=== PATIENT | male | born 1970 ===

== ENCOUNTER 2020-05-19 13:32 | Emergency (ER) | payer BC, OTHER, SELFPAY ==
[~2020-05-19] VITALS: Ht 177.8 cm; Wt 90.7 kg
--- NOTE | 2020-05-19 14:19 | NUR ---
COVID SWAB DONE
[2020-05-19 14:26] VITALS: BP 97/39
--- NOTE | 2020-05-19 14:53 | NUR ---
FEVER, COUGH. MOM HAS COVID +
== END 2020-05-19 14:50 | disposition home or self-care (01) ==
LOC: MED 13:32 → EEVIPCON 13:32 → MED 14:50
DX: U07.1 COVID-19 (principal)
CPT/HCPCS: 99283; U0003